=== PATIENT | male | born 1960 | race Caucasian/White ===

== ENCOUNTER → 2016-09-19 | Outpatient (CLI) | payer OTHER ==
--- NOTE | 2016-09-19 13:51 | US ---
EXAMINATION TYPE: US kidneys/renal and bladder DATE OF EXAM: 09/19/2016 1:25 PM COMPARISON: CT abdomen and pelvis October 16, 2015. Bilateral renal ultrasound October 17, 2015. CLINICAL HISTORY: US. 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 EXAM MEASUREMENTS: Right Kidney: 10.8 x 6.1 x 5.3cm Left Kidney: Not visualized ANATOMY: TECHNOLOGIST IMPRESSION: Right Kidney: 2.4 x 1.9 x 1.7cm anechoic lesion upper pole level right kidney with slight lobulation and increased through transmission likely reflecting simple cyst is redemonstrated and stable. Left Kidney: congenitally absent Bladder: appears wnl Right bladder jet seen Incidental finding: Shadowing mobile gallstones There is no evidence for hydronephrosis at this point in time. No new solid or cystic masses are iden tified. The urinary bladder is not greatly distended without abnormal intraluminal mass bladder wall thickness is upper limits of normal with slight lobulation present. Finding likely reflects outlet o bstruction related to enlarged prostate gland which is felt present on prior CT. IMPRESSION: No hydronephrosis in the single right kidney.
== END | disposition home or self-care (01) ==
LOC: RADUSWWP 13:03
PROVIDERS: ATTEND Internal Medicine Nephrology
DX: N18.3 Chronic kidney disease, stage 3 (moderate) (principal)
CPT/HCPCS: 76770

== ENCOUNTER 2016-10-04 12:06 | Observation (INO) | payer OTHER ==
[2016-10-04] MEDS ORDERED: SODIUM CHLORIDE 0.9% 1,000 ML IV STA (12:27)
--- NOTE | 2016-10-04 12:54 | ED ---
General Adult HPI - General Chief complaint: Chest Pain Stated complaint: Chest Pain Time Seen by Provider: 10/04/16 12:20 Source: patient, RN notes reviewed, old records reviewed Mode of arrival: wheelchair Limitations: no limitations - History of Present Illness Initial comments: This is a 48-year-old male to the ER for evaluation, patient coming in for evaluation of chest pain. Patient states he feels that he is having a heart attack. Patient has history of high blood pressure or cholesterol is positive smoking history. No recent cardiac evaluation, patient did see his lung doctor today who sent her to the ER for further evaluation of this chest pain. Patient does admit to mild shortness of breath although not much different than normal. No fevers cough or congestion, no recent travel history. Patient is taking no medications. - Related Data Home Medications Medication Instructions Recorded Confirmed Albuterol Inhaler [Ventolin Hfa 2 puff INHALATION RT-Q6H PRN 10/17/15 10/04/16 Inhaler] Budesonide-Formot 160-4.5 Mcg 2 puff INHALATION RT-BID 10/04/16 10/04/16 [Symbicort 160-4.5 Mcg Inhaler] Lisinopril [Zestril] 5 mg PO DAILY 10/04/16 10/04/16 Previous Rx's Medication Instructions Recorded Aspirin 325 mg PO DAILY #30 tab 08/30/16 Atorvastatin [Lipitor] 80 mg PO HS #30 tab 08/30/16 Clopidogrel [Plavix] 75 mg PO DAILY #30 tab 08/30/16 Montelukast [Singulair] 10 mg PO HS #30 tab 08/30/16 Nitroglycerin Sl Tabs [Nitrostat] 0.4 mg SUBLINGUAL Q5M PRN #25 tab 08/30/16 Allergies Allergy/AdvReac Type Severity Reaction Status Date / Time Penicillins Allergy Swelling Verified 10/04/16 12:12 Review of Systems ROS Statement: Those systems with pertinent positive or pertinent negative responses have been documented in the HPI. ROS Other: All systems not noted in ROS Statement are negative. Past Medical History Past Medical History: Asthma, COPD, GERD/Reflux, Hyperlipidemia, Hypertension, Pneumonia Additional Past Medical History / Comment(s): diverticular disease with perforation and sx, born with one kidney, recent pneumonia-completed ABX and steroids, syncope with cough, low back pain. History of Any Multi-Drug Resistant Organisms: None Reported Past Surgical History: Appendectomy, Bowel Resection, Heart Catheterization With Stent, Hernia Repair, Orthopedic Surgery Additional Past Surgical History / Comment(s): Laparoscopic appendectomy,pins and plates left wrist, pins and plates right knee, 10/16/13 sigmoid resection Past Anesthesia/Blood Transfusion Reactions: No Reported Reaction Past Psychological History: No Psychological Hx Reported Additional Psychological History / Comment(s): Pt resides alone. He has 2 cats. He is independent. 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 Smoking Status: Current every day smoker Past Alcohol Use History: Rare Additional Past Alcohol Use History / Comment(s): Pt states he started smoking in 1971 and quit 2 months ago. Past Drug Use History: None Reported - Past Family History Mother Family Medical History: Cancer Additional Family Medical History / Comment(s): Mother had laryngeal cancer. Father Family Medical History: Cancer, Hyperlipidemia, Hypertension Additional Family Medical History / Comment(s): Father has had back surgery and skin cancer removal. General Exam Limitations: no limitations General appearance: anxious Head exam: Present: atraumatic, normocephalic, normal inspection Eye exam: Present: normal appearance, PERRL, EOMI. Absent: scleral icterus, conjunctival injection, periorbital swelling ENT exam: Present: normal exam, mucous membranes moist Neck exam: Present: normal inspection. Absent: tenderness, meningismus, lymphadenopathy Respiratory exam: Present: normal lung sounds bilaterally. Absent: respiratory distress, wheezes, rales, rhonchi, stridor Cardiovascular Exam: Present: regular rate, normal rhythm, normal heart sounds. Absent: systolic murmur, diastolic murmur, rubs, gallop, clicks GI/Abdominal exam: Present: soft, normal bowel sounds. Absent: distended, tenderness, guarding, rebound, rigid Extremities exam: Present: normal inspection, full ROM, normal capillary refill. Absent: tenderness, pedal edema, joint swelling, calf tenderness Back exam: Present: normal inspection Neurological exam: Present: alert, oriented X3, CN II-XII intact Psychiatric exam: Present: normal affect, normal mood Skin exam: Present: warm, dry, intact, normal color. Absent: rash Course Vital Signs 10/04/16 12:10 Temperature 97.1 F L Pulse Rate 96 Respiratory 18 Rate Blood Pressure 106/68 O2 Sat by Pulse 96 Oximetry - Reevaluation(s) Reevaluation #1: 10/04/16 13:41 Patient patient remains with chest pain EKG Findings - EKG Comments: EKG Findings:: EKG shows normal sinus rhythm rate of 89, DC 116, QRS 84, QTc 413 Medical Decision Making - Medical Decision Making 56 male year with recent MD with stent placement, patient now with chest pain. Patient will be admitted for cardiac evaluation and treatment, no EKG changes, no ST elevation. Patient is placed again on anticoagulation for cardiac observation and telemetry - Lab Data Result diagrams: 10/04/16 12:55 10/04/16 12:55 Lab Results 10/04/16 10/04/16 10/04/16 Range/Units 12:55 12:55 12:55 WBC 7.9 (3.8-10.6) k/uL RBC 4.72 (4.30-5.90) m/uL Hgb 14.4 (13.0-17.5) gm/dL Hct 45.0 (39.0-53.0) % MCV 95.3 (80.0-100.0) fL MCH 30.5 (25.0-35.0) pg MCHC 32.0 (31.0-37.0) g/dL RDW 15.1 (11.5-15.5) % Plt Count 275 (150-450) k/uL Neutrophils % 72 % Lymphocytes % 19 % Monocytes % 5 % Eosinophils % 1 % Basophils % 0 % Neutrophils # 5.7 (1.3-7.7) k/uL Lymphocytes # 1.5 (1.0-4.8) k/uL Monocytes # 0.4 (0-1.0) k/uL Eosinophils # 0.1 (0-0.7) k/uL Basophils # 0.0 (0-0.2) k/uL PT 10.3 (9.0-12.0) sec INR 1.0 (<1.1) APTT 23.7 (22.0-30.0) sec Sodium 141 (137-145) mmol/L Potassium 5.0 (3.5-5.1) mmol/L Chloride 105 (98-107) mmol/L Carbon Dioxide 24 (22-30) mmol/L Anion Gap 12 mmol/L BUN 35 H (9-20) mg/dL Creatinine 2.20 H (0.66-1.25) mg/dL Est GFR (MDRD) Af Amer 37 (>60 ml/min/1.73 sqM) Est GFR (MDRD) Non-Af 31 (>60 ml/min/1.73 sqM) Glucose 114 H (74-99) mg/dL Calcium 9.7 (8.4-10.2) mg/dL Magnesium 2.0 (1.6-2.3) mg/dL Total Bilirubin 0.5 (0.2-1.3) mg/dL AST 16 L (17-59) U/L ALT 25 (21-72) U/L Alkaline Phosphatase 84 (38-126) U/L Total Protein 6.3 (6.3-8.2) g/dL Albumin 3.7 (3.5-5.0) g/dL Lipase 78 (23-300) U/L - Radiology Data Radiology results: report reviewed (Chest x-ray 2 views negative for acute disease), image reviewed Critical Care Time Critical Care Time: Yes Total Critical Care Time: 31 Disposition Clinical Impression: Chest pain, Unstable angina pectoris Disposition: ADMITTED IP TO THIS [facility] Condition: Undetermined Referrals: Alexandru Jenkins Jr, DO [Primary Care Provider] - 1-2 days
--- NOTE | 2016-10-04 13:15 | XR ---
EXAMINATION TYPE: XR chest 2V DATE OF EXAM: 10/04/2016 1:02 PM COMPARISON: 08/28/2016 HISTORY: Shortness of breath FINDINGS: The lungs are clear and there is no pneumothorax, pleural effusion, or focal pneumonia. Hyperinflati on suggests COPD. Calcified granuloma left upper lobe. Arthropathy of the shoulder noted. IMPRESSION: 1. No acute process. Correlate for COPD.
[2016-10-04 13:18] LABS: Partial Thromboplastin Time 23.7 sec (22.0-30.0); Prothrombin Time 10.3 sec (9.0-12.0)
[2016-10-04 13:19] LABS: Basophils % (A) 0 %; CH 31.1; CHCM 32.9; Calcium 9.7 mg/dL (8.4-10.2); Eosinophils # (A) 0.1 k/uL (0-0.7); Eosinophils % (A) 1 %; HDW 2.65; HGB 14.4 gm/dL (13.0-17.5); Luc # (Auto) 0.14; Luc % (Auto) 2; Lymphocytes # (A) 1.5 k/uL (1.0-4.8); Lymphocytes % (A) 19 %; MCH 30.5 pg (25.0-35.0); MCV 95.3 fL (80.0-100.0); Mean Platelet Volume 6.8; Monocytes # (A) 0.4 k/uL (0-1.0); Monocytes % (A) 5 %; Neutrophils # (A) 5.7 k/uL (1.3-7.7); Neutrophils % (A) 72 %; RBC 4.72 m/uL (4.30-5.90); RDW 15.1 % (11.5-15.5); Total Bilirubin 0.5 mg/dL (0.2-1.3); Total Protein 6.3 g/dL (6.3-8.2); WBC 7.9 k/uL (3.8-10.6); WBC (Perox) 7.91
[2016-10-04] MEDS ORDERED: HEPARIN SODIUM,PORCINE 5,000 UNIT/ML 1 ML VIAL IV ONE (13:39)
[2016-10-04] MEDS ORDERED: NITROGLYCERIN SL TABS 0.4 MG TAB SUBLINGUAL PRN (13:39)
[2016-10-04] MEDS ORDERED: ASPIRIN 81 MG CHEW PO STA (13:39)
[2016-10-04] MEDS ORDERED: MORPHINE SULFATE 4 MG/ML SYRINGE IV PRN (13:39)
[2016-10-04] MEDS ORDERED: HEPARIN SODIUM,PORCINE 5,000 UNIT/ML 1 ML VIAL IV PRN (13:39)
[2016-10-04] MEDS ORDERED: MORPHINE SULFATE 2 MG/ML SYRINGE IVP STA (13:39)
[2016-10-04] MEDS ORDERED: SODIUM CHLORIDE 0.9% 1,000 ML IV SCH (13:45)
[2016-10-04] MEDS ORDERED: HEPARIN SODIUM,PORCINE/D5W PMX 25,000 UNIT in DEXTROSE/WATER 1 500ML.BAG IV SCH (13:45)
[2016-10-04 13:46] LABS: Troponin I 0.043 ng/mL (0.000-0.034)
[2016-10-04 14:08] VITALS: TEMP 98
[2016-10-04 15:59] VITALS: BP 109/69; PULSE 80; RESP 16
[2016-10-05] MEDS ORDERED: ATORVASTATIN 80 MG TAB PO SCH (09:00)
[2016-10-05] MEDS ORDERED: ASPIRIN 325 MG TAB PO SCH (09:00)
== END 2016-10-04 16:08 | disposition left against medical advice (07) ==
LOC: EC 12:06 → 6SEL 13:39
PROVIDERS: ADMIT Family Medicine; ATTEND Family Medicine
DX: R07.9 Chest pain, unspecified (principal); J45.909 Unspecified asthma, uncomplicated; J44.9 Chronic obstructive pulmonary disease, unspecified; I10 Essential (primary) hypertension; F17.200 Nicotine dependence, unspecified, uncomplicated; Z95.5 Presence of coronary angioplasty implant and graft; I25.2 Old myocardial infarction; Z79.51 Long term (current) use of inhaled steroids; Z79.899 Other long term (current) drug therapy; Z88.0 Allergy status to penicillin; Q60.0 Renal agenesis, unilateral
CPT/HCPCS: 96365; 96366; 96376; 96361 ×3; 99291; 36415; 93005; 83880; 80053; 82550; 82553; 83690; 83735; 84484; 85025; 85610; 85730; 71020; G0378; J1644 ×2

== ENCOUNTER → 2016-10-09 | Outpatient (CLI) | payer OTHER ==
[2016-10-09 10:29] LABS: Bilirubin, Delta 0.3 mg/dL (0.0-0.2); Total Bilirubin 0.6 mg/dL (0.2-1.3); Total Protein 6.6 g/dL (6.3-8.2)
== END | disposition home or self-care (01) ==
LOC: LABWHC1 09:07
PROVIDERS: ATTEND Internal Medicine Cardiovascular Disease
DX: E78.5 Hyperlipidemia, unspecified (principal); I25.10 Atherosclerotic heart disease of native coronary artery without angina pectoris
CPT/HCPCS: 36415; 80061; 80076

== ENCOUNTER → 2017-01-21 | Outpatient (CLI) | payer OTHER ==
--- NOTE | 2017-01-21 19:01 | CT ---
EXAMINATION TYPE: CT chest wo con DATE OF EXAM: 01/21/2017 6:54 PM COMPARISON: NONE HISTORY: Difficulty swallowing x [address] DLP: 1042.90 mGycm Automated exposure control for dose reduction was used. FINDINGS: The lungs are clear of infiltrate. There is no sign of a pulmonary mass. There is a hiatal hernia. Th ere are calcified granulomata at the left pulmonary hilum. There is no pleural effusion. There is no mediastinal adenopathy. There is no evidence of aortic aneurysm. The bony thorax appears intact. IMPRESSION: HIATAL HERNIA. HEALED GRANULOMATOUS DISEASE. MINIMAL SCARRING OR SUBSEGMENTAL ATELECTASIS IN THE LING [place] LEFT UPPER LOBE.
--- NOTE | 2017-01-21 19:06 | CT ---
EXAMINATION TYPE: CT soft tissue neck wo con DATE OF EXAM: 01/21/2017 6:53 PM COMPARISON: NONE HISTORY: Difficulty swallowing x [address] DLP: 1042.90 mGycm Automated exposure control for dose reduction was used. FINDINGS: There is normal branching pattern of the great vessels on the aortic arch. I see no mediastinal adeno adryan. Thyroid gland is symmetric. There is no evidence of a pharyngeal mass. Trachea appears normal. Parotid glands are symmetric. Submandibular salivary glands are symmetric. Epiglottis appears normal . There is fairly normal aeration of the paranasal sinuses. I see no bony destructive process. There is mild spondylosis in the cervical spine. I see no significant cervical adenopathy. IMPRESSION: DEGENERATIVE HYPERTROPHIC DISC CHANGES AT C6-7. OTHERWISE NEGATIVE CT SCAN OF THE NECK.
== END | disposition home or self-care (01) ==
LOC: RADCTMAIN 17:30
PROVIDERS: ATTEND Family Medicine
DX: K22.0 Achalasia of cardia (principal); Z85.21 Personal history of malignant neoplasm of larynx; J98.11 Atelectasis; K44.9 Diaphragmatic hernia without obstruction or gangrene; D71 Functional disorders of polymorphonuclear neutrophils
CPT/HCPCS: 36415; 70490; 71250; 82565; 84520

== ENCOUNTER 2017-03-06 08:11 | Day surgery (SDC) | payer OTHER ==
[2017-03-01 12:19] VITALS: BMI 27.6
[~2017-03-06 08:11] MED LIST: LACTATED RINGERS 1,000 ML IV SCH
[2017-03-06 09:54] VITALS: RESP 16; TEMP 97.9
[2017-03-06] MEDS ORDERED: PROPOFOL 10 MG/ML 20 ML VIAL IV ONE (09:57)
--- NOTE | 2017-03-06 10:08 | P.PCN ---
Date of Procedure: 03/06/17 Preoperative Diagnosis: Postoperative Diagnosis: Procedure(s) Performed: BRIEF HISTORY: Patient is a 56-year-old, pleasant, white male, scheduled for an upper endoscopy as a part of evaluation of progressive dysphagia to solids for the last 5 months duration. He denies any weight loss.. PROCEDURE PERFORMED: Esophagogastroduodenoscopy with biopsy. PREOPERATIVE DIAGNOSIS: Progressive dysphagia to solids. IV sedation per anesthesia. PROCEDURE: After informed consent was obtained, the patient was brought into the endoscopy unit. IV sedation was administered by Anesthesia under continuous monitoring. Initially the Olympus GIF-140 video endoscope was inserted into the mouth. Esophagus intubated without any difficulty. It was gradually advanced into the distal esophagus where there was an ulcerated lesion identified extending from 37-40 cm from the incisors with some luminal narrowing. The scope was advanced into the stomach and duodenum and carefully examined. The bulb and the second part of the duodenum appeared normal. The scope at this time was withdrawn to the stomach, adequately insufflated with air, and upon careful examination, mucosa of the antrum, body, cardia and the fundus appeared normal. The scope was then withdrawn into the esophagus. Small hiatal hernia seen. The GE junction was located at 40 cm from the incisors. There was a distal esophageal ulcerated mass identified with some luminal narrowing but the scope could be advanced without any resistance. Multiple biopsies were done from this area. The rest of the esophagus appeared normal. There were no erosions or ulcerations seen and the patient tolerated the procedure well. IMPRESSION: 1. 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 2. Small hiatal hernia. RECOMMENDATIONS: The findings of this examination were discussed with the patient as well as his family. He was advised to follow up in office in 2-3 days to discuss the biopsy results. Implants: Indications for Procedure: Operative Findings: Description of Procedure:
[2017-03-06 10:25] VITALS: BP 118/63; PULSE 63
== END 2017-03-06 11:05 | disposition home or self-care (01) ==
LOC: ORWHC2ENDO 08:11
PROVIDERS: ATTEND Internal Medicine Gastroenterology
DX: C15.5 Malignant neoplasm of lower third of esophagus (principal); K44.9 Diaphragmatic hernia without obstruction or gangrene; I10 Essential (primary) hypertension; I25.2 Old myocardial infarction; I25.10 Atherosclerotic heart disease of native coronary artery without angina pectoris; Z95.5 Presence of coronary angioplasty implant and graft; J44.9 Chronic obstructive pulmonary disease, unspecified; N28.9 Disorder of kidney and ureter, unspecified; K21.9 Gastro-esophageal reflux disease without esophagitis; F17.200 Nicotine dependence, unspecified, uncomplicated; Z79.02 Long term (current) use of antithrombotics/antiplatelets; Z79.82 Long term (current) use of aspirin; Z79.899 Other long term (current) drug therapy; Z88.0 Allergy status to penicillin
CPT/HCPCS: 88305; 43239; J2704; 88341; 88342

== ENCOUNTER → 2017-04-16 | Outpatient (CLI) | payer OTHER ==
[2017-04-16 09:05] LABS: CH 30.2; CHCM 32.1; HCT 50.4 % (39.0-53.0); HDW 2.59; HGB 16.4 gm/dL (13.0-17.5); MCH 30.8 pg (25.0-35.0); MCHC 32.6 g/dL (31.0-37.0); MCV 94.5 fL (80.0-100.0); Mean Platelet Volume 7.6; RBC 5.33 m/uL (4.30-5.90); WBC 7.4 k/uL (3.8-10.6)
[2017-04-16 12:22] LABS: Calcium 9.8 mg/dL (8.4-10.2); Magnesium 1.8 mg/dL (1.6-2.3); Phosphorous 3.8 mg/dL (2.5-4.5); Potassium 4.9 mmol/L (3.5-5.1); Total Protein 6.8 g/dL (6.3-8.2); Uric Acid 9.4 mg/dL (3.5-8.5)
[2017-04-16 12:31] LABS: % Iron Saturation 27.2 % (20-50)
== END | disposition home or self-care (01) ==
LOC: LABWHC1 08:21
PROVIDERS: ATTEND Internal Medicine
DX: E55.9 Vitamin D deficiency, unspecified (principal); E21.3 Hyperparathyroidism, unspecified; M10.9 Gout, unspecified; N39.0 Urinary tract infection, site not specified; R80.9 Proteinuria, unspecified; N18.3 Chronic kidney disease, stage 3 (moderate); D63.1 Anemia in chronic kidney disease
CPT/HCPCS: 36415; 80053; 82306; 82728; 83540; 83550; 83735; 83970; 84100; 84550; 85027

== ENCOUNTER 2017-04-17 23:33 | Observation (INO) | payer OTHER ==
[2017-04-18 00:16] LABS: Basophils # (A) 0.1 k/uL (0-0.2); Basophils % (A) 1 %; CH 31.4; CHCM 33.4; Eosinophils # (A) 0.1 k/uL (0-0.7); Eosinophils % (A) 2 %; HCT 53.7 % (39.0-53.0); HDW 2.54; HGB 17.1 gm/dL (13.0-17.5); Luc # (Auto) 0.17; Luc % (Auto) 2; Lymphocytes # (A) 1.3 k/uL (1.0-4.8); Lymphocytes % (A) 17 %; MCHC 31.8 g/dL (31.0-37.0); MCV 94.3 fL (80.0-100.0); Monocytes # (A) 0.4 k/uL (0-1.0); Monocytes % (A) 5 %; Neutrophils # (A) 5.3 k/uL (1.3-7.7); Neutrophils % (A) 73 %; RBC 5.69 m/uL (4.30-5.90); RDW 15.9 % (11.5-15.5); WBC 7.3 k/uL (3.8-10.6); WBC (Perox) 6.96
[2017-04-18 00:24] LABS: Calcium 9.8 mg/dL (8.4-10.2); Partial Thromboplastin Time 23.6 sec (22.0-30.0); Prothrombin Time 10.5 sec (9.0-12.0); Total Bilirubin 0.9 mg/dL (0.2-1.3); Total Protein 6.9 g/dL (6.3-8.2)
--- NOTE | 2017-04-18 00:32 | ED ---
GI Bleed HPI - General Chief complaint: GI Bleed Stated complaint: throwing up blood/cancer patient Time Seen by Provider: 04/18/17 00:00 Source: patient Mode of arrival: wheelchair Limitations: no limitations - History of Present Illness Initial comments: This patient is a 56-year-old man who presents to be evaluated for vomiting blood. The patient states that the symptoms developed 3-4 hours ago. He states that he was just sitting at the time. He has subsequently vomited with some red blood and with some small clots a total of 3 times. He denies any abdominal pain or change in bowel movements. He does state that he has had some substernal aching pain, which contrary to the nursing notes did not start tonight, but has been going on for weeks. He states that this has not changed any was told that this was due to his cancer. The patient is denying any new dyspnea, though he states with his COPD he does have some occasional shortness of breath anyways. He denies lightheadedness, postural hypotension, palpitations or syncope. MD complaint: gross hematemesis Onset/Timin -: hour(s) Quality: painless Improves with: none Worsens with: none Context: other Associated Symptoms: other (chest pain) Treatments Prior to Arrival: none - Related Data Home Medications Medication Instructions Recorded Confirmed Albuterol Inhaler [Ventolin Hfa 2 puff INHALATION RT-Q6H PRN 10/17/15 04/17/17 Inhaler] Budesonide-Formot 160-4.5 Mcg 2 puff INHALATION RT-BID 10/04/16 04/17/17 [Symbicort 160-4.5 Mcg Inhaler] Isosorbide Mononitrate [Isosorbide 30 mg PO DAILY 03/01/17 04/17/17 Mononitrate ER] Tiotropium 18 Mcg/Puff [Spiriva] 1 cap INHALATION DAILY 03/01/17 04/17/17 buPROPion [Wellbutrin] 100 mg PO BID 03/01/17 04/17/17 Previous Rx's Medication Instructions Recorded Aspirin 325 mg PO DAILY #30 tab 08/30/16 Atorvastatin [Lipitor] 80 mg PO HS #30 tab 08/30/16 Clopidogrel [Plavix] 75 mg PO DAILY #30 tab 08/30/16 Montelukast [Singulair] 10 mg PO HS #30 tab 08/30/16 Nitroglycerin Sl Tabs [Nitrostat] 0.4 mg SUBLINGUAL Q5M PRN #25 tab 08/30/16 Allergies Allergy/AdvReac Type Severity Reaction Status Date / Time Penicillins Allergy Swelling Verified 04/17/17 23:39 Review of Systems ROS Statement: Those systems with pertinent positive or pertinent negative responses have been documented in the HPI. ROS Other: All systems not noted in ROS Statement are negative. Constitutional: Denies: fever, chills, weakness Respiratory: Denies: cough, dyspnea, wheezes, hemoptysis Cardiovascular: Reports: as per HPI, chest pain. Denies: palpitations, edema, syncope Gastrointestinal: Reports: nausea, vomiting, hematemesis. Denies: abdominal pain, diarrhea, constipation, melena, hematochezia Genitourinary: Denies: dysuria, hematuria Musculoskeletal: Denies: back pain Skin: Denies: rash Neurological: Denies: headache, weakness, numbness Hematological/Lymphatic: Denies: easy bleeding 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%, recent dysphagia, occasional syncope w/hard coughing, esophageal CA. Last Myocardial Infarction Date:: 08/28/16 History of Any Multi-Drug Resistant Organisms: None Reported Past Surgical History: Appendectomy, Bowel Resection, Heart Catheterization With Stent, Hernia Repair, Orthopedic Surgery Additional Past Surgical History / Comment(s): pins and plates left wrist, pins and plates right knee Past Anesthesia/Blood Transfusion Reactions: No Reported Reaction Date of Last Stent Placement:: 08/28/16 Past Psychological History: No Psychological Hx Reported Smoking Status: Current every day smoker Past Alcohol Use History: Rare Past Drug Use History: None Reported - Past Family History Mother Family Medical History: Cancer Additional Family Medical History / Comment(s): Mother had laryngeal cancer. Father Family Medical History: Cancer, Hyperlipidemia, Hypertension Additional Family Medical History / Comment(s): Father has had back surgery and skin cancer removal. General Exam Limitations: no limitations General appearance: alert, in no apparent distress Head exam: Present: atraumatic, normocephalic Eye exam: Present: normal appearance. Absent: scleral icterus, conjunctival injection ENT exam: Present: normal oropharynx Neck exam: Present: normal inspection Respiratory exam: Present: wheezes (There is a trace and expiratory wheeze). Absent: respiratory distress, rales, rhonchi, stridor, accessory muscle use, decreased breath sounds, prolonged expiratory Cardiovascular Exam: Present: regular rate, normal rhythm, normal heart sounds. Absent: systolic murmur, diastolic murmur, rubs, gallop GI/Abdominal exam: Present: soft. Absent: distended, tenderness, guarding, rebound, mass, pulsatile mass, hernia Extremities exam: Present: normal inspection, normal capillary refill. Absent: pedal edema, calf tenderness Back exam: Present: normal inspection. Absent: CVA tenderness (R), CVA tenderness (L) Neurological exam: Present: alert Skin exam: Present: warm, dry, intact, normal color. Absent: rash Course Vital Signs 04/17/17 04/18/17 23:35 01:44 Temperature 98.2 F Pulse Rate 74 66 Respiratory 18 18 Rate Blood Pressure 138/71 130/79 O2 Sat by Pulse 95 98 Oximetry Medical Decision Making - Lab Data Result diagrams: 04/17/17 23:55 04/17/17 23:55 Lab Results 04/17/17 04/17/17 04/17/17 Range/Units 23:55 23:55 23:55 WBC 7.3 (3.8-10.6) k/uL RBC 5.69 (4.30-5.90) m/uL Hgb 17.1 (13.0-17.5) gm/dL Hct 53.7 H (39.0-53.0) % MCV 94.3 (80.0-100.0) fL MCH 30.0 (25.0-35.0) pg MCHC 31.8 (31.0-37.0) g/dL RDW 15.9 H (11.5-15.5) % Plt Count 219 (150-450) k/uL Neutrophils % 73 % Lymphocytes % 17 % Monocytes % 5 % Eosinophils % 2 % Basophils % 1 % Neutrophils # 5.3 (1.3-7.7) k/uL Lymphocytes # 1.3 (1.0-4.8) k/uL Monocytes # 0.4 (0-1.0) k/uL Eosinophils # 0.1 (0-0.7) k/uL Basophils # 0.1 (0-0.2) k/uL PT 10.5 (9.0-12.0) sec INR 1.0 (<1.2) APTT 23.6 (22.0-30.0) sec Sodium 143 (137-145) mmol/L Potassium 4.0 (3.5-5.1) mmol/L Chloride 102 (98-107) mmol/L Carbon Dioxide 27 (22-30) mmol/L Anion Gap 14 mmol/L BUN 39 H (9-20) mg/dL Creatinine 2.10 H (0.66-1.25) mg/dL Est GFR (MDRD) Af Amer 40 (>60 ml/min/1.73 sqM) Est GFR (MDRD) Non-Af 33 (>60 ml/min/1.73 sqM) Glucose 103 H (74-99) mg/dL Plasma Lactic Acid David (0.7-2.0) mmol/L Calcium 9.8 (8.4-10.2) mg/dL Total Bilirubin 0.9 (0.2-1.3) mg/dL AST 20 (17-59) U/L ALT 30 (21-72) U/L Alkaline Phosphatase 110 (38-126) U/L Troponin I (0.000-0.034) ng/mL Total Protein 6.9 (6.3-8.2) g/dL Albumin 4.1 (3.5-5.0) g/dL Blood Type Blood Type Recheck Antibody Screen Spec Expiration Date 04/17/17 04/17/17 04/18/17 Range/Units 23:55 23:55 00:12 WBC (3.8-10.6) k/uL RBC (4.30-5.90) m/uL Hgb (13.0-17.5) gm/dL Hct (39.0-53.0) % MCV (80.0-100.0) fL MCH (25.0-35.0) pg MCHC (31.0-37.0) g/dL RDW (11.5-15.5) % Plt Count (150-450) k/uL Neutrophils % % Lymphocytes % % Monocytes % % Eosinophils % % Basophils % % Neutrophils # (1.3-7.7) k/uL Lymphocytes # (1.0-4.8) k/uL Monocytes # (0-1.0) k/uL Eosinophils # (0-0.7) k/uL Basophils # (0-0.2) k/uL PT (9.0-12.0) sec INR (<1.2) APTT (22.0-30.0) sec Sodium (137-145) mmol/L Potassium (3.5-5.1) mmol/L Chloride (98-107) mmol/L Carbon Dioxide (22-30) mmol/L Anion Gap mmol/L BUN (9-20) mg/dL Creatinine (0.66-1.25) mg/dL Est GFR (MDRD) Af Amer (>60 ml/min/1.73 sqM) Est GFR (MDRD) Non-Af (>60 ml/min/1.73 sqM) Glucose (74-99) mg/dL Plasma Lactic Acid David 1.1 (0.7-2.0) mmol/L Calcium (8.4-10.2) mg/dL Total Bilirubin (0.2-1.3) mg/dL AST (17-59) U/L ALT (21-72) U/L Alkaline Phosphatase (38-126) U/L Troponin I <0.012 (0.000-0.034) ng/mL Total Protein (6.3-8.2) g/dL Albumin (3.5-5.0) g/dL Blood Type O Positive Blood Type Recheck No Antibody Screen NEGATIVE Spec Expiration Date 04/20/20172 Disposition Clinical Impression: Upper gastrointestinal hemorrhage Disposition: ADMITTED IP TO THIS [facility] Condition: Fair Referrals: Alexandru Jenkins Jr, DO [Primary Care Provider] - 1-2 days
[2017-04-18] MEDS ORDERED: ONDANSETRON 4 MG/2 ML VIAL IVP PRN (02:35)
[2017-04-18] MEDS ORDERED: ACETAMINOPHEN TAB 325 MG TAB PO PRN (02:35)
[2017-04-18] MEDS ORDERED: MAG HYDROX/AL HYDROX/SIMETH 30 ML CUP PO PRN (02:35)
[2017-04-18] MEDS ORDERED: NALOXONE 0.4 MG/ML 1 ML VIAL IV PRN (02:35)
[2017-04-18] MEDS ORDERED: ALBUTEROL NEBULIZED 2.5 MG/3 ML INHALATION PRN ×2 (02:37→14:49)
[2017-04-18] MEDS ORDERED: NITROGLYCERIN SL TABS 0.4 MG TAB SUBLINGUAL PRN (02:37)
[2017-04-18] MEDS: SODIUM CHLORIDE 0.9% 1,000 ML IV SCH ×2 (02:53→10:29)
[2017-04-18 03:46] VITALS: BMI 28.1
[2017-04-18 07:25] LABS: CH 31.5; CHCM 33.2; HCT 49.8 % (39.0-53.0); HDW 2.51; HGB 16.1 gm/dL (13.0-17.5); MCH 30.8 pg (25.0-35.0); MCHC 32.3 g/dL (31.0-37.0); MCV 95.3 fL (80.0-100.0); Mean Platelet Volume 8.3; RBC 5.23 m/uL (4.30-5.90); RDW 15.9 % (11.5-15.5); WBC 6.9 k/uL (3.8-10.6)
[2017-04-18] MEDS ORDERED: SYMBICORT 160-4.5 MCG INHALER INHALATION SCH (08:00)
[2017-04-18] MEDS ORDERED: buPROPion 100 MG TAB PO SCH (09:00)
[2017-04-18] MEDS ORDERED: ISOSORBIDE MONONITRATE ER 30 MG TAB.ER.24H PO SCH (09:00)
[2017-04-18] MEDS ORDERED: TIOTROPIUM 18 MCG/PUFF INHALER INHALATION SCH ×2 (09:00)
[2017-04-18] MEDS ORDERED: PANTOPRAZOLE 40 MG/10 ML VIAL IV SCH (09:00)
[2017-04-18] MEDS ORDERED: NICOTINE 14MG/24HR PATCH TRANSDERM SCH (10:30)
[2017-04-18 15:38] LABS: CH 31.3; CHCM 32.9; HCT 46.7 % (39.0-53.0); HDW 2.53; MCH 30.8 pg (25.0-35.0); MCHC 32.2 g/dL (31.0-37.0); MCV 95.5 fL (80.0-100.0); Mean Platelet Volume 8.6; RBC 4.89 m/uL (4.30-5.90); WBC 6.7 k/uL (3.8-10.6)
[2017-04-18 15:42] VITALS: BP 130/80; PULSE 68; RESP 17; TEMP 97.8
[2017-04-18] MEDS ORDERED: NON-FORMULARY DRUG (Omeprazole 20 MG) PO SCH (17:30)
--- NOTE | 2017-04-18 18:31 | P.HPIM ---
History of Present Illness H&P Date: 04/18/17 Chief Complaint: Hematemesis, newly diagnosed esophageal cancer This 56-year-old man well-known to my practice who presented to the emergency room vomiting blood. Patient stated at the time the symptoms began about 3 or 4 hours ago, patient states he was sitting up at the time, this patient is relatively new to the practice I'm seeing him 3 times daily newly diagnosed him with esophageal cancer he is currently being attended to at the [facility] and was beginning about ready to start radiochemotherapy preoperatively to shrink the tumor mass so that he can undergo a believe a gastric pull up. Patient does have some midsternal aching pain was told that this was secondary to the cancer patient has a history of COPD he has quit smoking cigarettes although he still uses a nicotine vaporizer. He denies lightheadedness venous denies postural hypotension as well as palpitations and syncope Review of Systems Constitutional: Reports anorexia Ears, nose, mouth and throat: Reports as per HPI Cardiovascular: Reports as per HPI, Reports chest pain Respiratory: Reports dyspnea (Known early COPD) Gastrointestinal: Reports hematemesis (Newly diagnosed esophageal cancer) Genitourinary: Reports as per HPI Musculoskeletal: Reports as per HPI Integumentary: Reports acne Neurological: Reports as per HPI Past Medical History Past Medical History: Asthma, Cancer, COPD, GERD/Reflux, Hyperlipidemia, Hypertension, Myocardial Infarction ([place]), Osteoarthritis (OA), Renal Disease Additional Past Medical History / Comment(s): diverticular disease with perforation and sx, CKD stage III, 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%, recent dysphagia, occasional syncope w/hard coughing, esophageal CA Dx 03/2017 Last Myocardial Infarction Date:: 08/28/16 History of Any Multi-Drug Resistant Organisms: None Reported Past Surgical History: Appendectomy, Bowel Resection, Heart Catheterization With Stent, Hernia Repair, Orthopedic Surgery Additional Past Surgical History / Comment(s): pins and plates left wrist, pins and plates right knee Past Anesthesia/Blood Transfusion Reactions: No Reported Reaction Date of Last Stent Placement:: 08/28/16 Past Psychological History: No Psychological Hx Reported Additional Psychological History / Comment(s): Pt resides alone. He has 2 cats. He is independent. 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 Smoking Status: Former smoker Past Alcohol Use History: Rare Additional Past Alcohol Use History / Comment(s): down to 4 cigs/day from 3ppd, has smoked for 42 yrs. Past Drug Use History: None Reported - Past Family History Mother Family Medical History: Cancer Additional Family Medical History / Comment(s): Mother had laryngeal cancer. Father Family Medical History: Cancer, Hyperlipidemia, Hypertension Additional Family Medical History / Comment(s): Father has had back surgery and skin cancer removal. Medications and Allergies Home Medications Medication Instructions Recorded Confirmed Type Albuterol Inhaler [Ventolin Hfa 2 puff INHALATION RT-Q6H PRN 10/17/15 04/18/17 History Inhaler] Budesonide-Formot 160-4.5 Mcg 2 puff INHALATION RT-BID 10/04/16 04/18/17 History [Symbicort 160-4.5 Mcg Inhaler] Isosorbide Mononitrate [Isosorbide 30 mg PO DAILY 03/01/17 04/18/17 History Mononitrate ER] Tiotropium 18 Mcg/Puff [Spiriva] 1 cap INHALATION RT-DAILY 03/01/17 04/18/17 History buPROPion [Wellbutrin] 100 mg PO BID 03/01/17 04/18/17 History Albuterol Nebulized [Ventolin 2.5 mg INHALATION RT-Q4H PRN 04/18/17 04/18/17 History Nebulized] Bisoprol/Hydrochlorothiazide [Ziac 1 tab PO DAILY 04/18/17 04/18/17 History 5-6.25 MG] Omeprazole [PriLOSEC] 20 mg PO AC-BID 04/18/17 04/18/17 History Allergies Allergy/AdvReac Type Severity Reaction Status Date / Time bee venom protein (honey bee) Allergy Swelling Verified 04/18/17 08:54 Penicillins Allergy Swelling Verified 04/18/17 08:54 Physical Exam Osteopathic Statement: *. No significant issues noted on an osteopathic structural exam other than those noted in the History and Physical/Consult. Vitals: Vital Signs Temp Pulse Pulse Resp BP BP Pulse Ox 04/18/17 15:41 97.8 F 68 17 130/80 95 04/18/17 12:00 18 04/18/17 08:00 97.6 F 67 18 119/63 92 L 04/18/17 04:00 97.8 F 62 18 133/73 98 04/18/17 02:59 98.0 F 63 16 136/82 97 04/18/17 02:48 98.0 F 63 16 136/82 97 04/18/17 01:44 66 18 130/79 98 04/17/17 23:35 98.2 F 74 18 138/71 95 Intake and Output 04/18/17 04/18/17 04/18/17 06:59 14:59 22:59 Intake Total 500 760 Balance 500 760 Intake: Intake, IV Titration 400 Amount Sodium Chloride 0.9% 1, 400 000 ml @ 125 mls/hr IV . Q8H [facility] Rx#:[id number] Oral 100 760 Other: Voiding Method Toilet Toilet Toilet # Voids 1 Weight 81.647 kg General: [Patient awake, alert and oriented times 3. Patient in no acute distress.] HEENT: [PERRL. EOMI. No pharyngeal erythema or exudate.] Neck: [No adenopathy.] Cardiac: [Heart regular in rate and rhythm. No S3. No S4. No clicks, rubs. No murmur.] Lungs: [Clear to auscultation bilaterally.] Abdomen: [No mass. No organomegaly. Bowel sounds presnt and normoactive in all 4 quadrants.] Extremes: [No edema no cyanosis no claudication normal pulses] : [] Musculoskeletal: [No joint erythema, edema or tenderness.] Skin: [No rash.] Neurologic: [No lateralizing deficits. CN II - XII grossly intact.] Lymphatic: [No adenopathy.] Results CBC & Chem 7: 04/18/17 15:11 04/17/17 23:55 Labs: Abnormal Lab Results - Last 24 Hours (Table) 04/17/17 04/17/17 04/18/17 Range/Units 23:55 23:55 06:27 Hct 53.7 H (39.0-53.0) % RDW 15.9 H 15.9 H (11.5-15.5) % BUN 39 H (9-20) mg/dL Creatinine 2.10 H (0.66-1.25) mg/dL Glucose 103 H (74-99) mg/dL 04/18/17 Range/Units 15:11 Hct (39.0-53.0) % RDW 16.0 H (11.5-15.5) % BUN (9-20) mg/dL Creatinine (0.66-1.25) mg/dL Glucose (74-99) mg/dL Thrombosis Risk Factor Assmnt - Choose All That Apply Any of the Below Risk Factors Present?: Yes Each Factor Represents 1 point: Age 41-60 years Other Risk Factors: No Thrombosis Risk Factor Assessment Total Risk Factor Score: 1 Thrombosis Risk Factor Assessment Level: Low Risk Assessment and Plan (1) Upper gastrointestinal hemorrhage Narrative/Plan: Acute Status: Acute (2) THO (acute kidney injury) Narrative/Plan: By history Status: Acute (3) Acute coronary syndrome Narrative/Plan: By history Status: Acute (4) Acute diverticulitis Narrative/Plan: By history Status: Acute (5) Acute renal failure Narrative/Plan: By history Status: Acute (6) Asthma Narrative/Plan: By history Status: Acute (7) COPD exacerbation Narrative/Plan: By history Status: Acute (8) Chest pain Narrative/Plan: By history and recent history of newly diagnosed esophageal cancer Status: Acute Plan: Patient has newly diagnosed esophageal cancer currently being worked up at the emergency admission patient is about to begin chemoradiotherapy preoperatively to shrink the tumor mass so he can undergo surgery. The bleeding is bright red and is definitely secondary to the esophageal cancer, Bleeding has completely stopped patient feels much better Dr. Osorio had stopped by and is reassured the patient that this was part of the early process Patient wishes to go home to prepare his first visit [facility]
--- NOTE | 2017-04-18 18:34 | P.DS ---
Providers Date of admission: 04/18/17 02:35 Expected date of discharge: 04/18/17 Attending physician: Alexandru Jenkins Primary care physician: Alexandru Jenkins - Discharge Diagnosis(es) (1) Upper gastrointestinal hemorrhage Current Visit: Yes Status: Acute (2) THO (acute kidney injury) Current Visit: No Status: Acute (3) Acute coronary syndrome Current Visit: No Status: Acute (4) Acute diverticulitis Current Visit: No Status: Acute (5) Acute renal failure Current Visit: No Status: Acute (6) Asthma Current Visit: No Status: Acute (7) COPD exacerbation Current Visit: No Status: Acute (8) Chest pain Current Visit: No Status: Acute Hospital Course: Patient was admitted less than a reevaluate her this morning patient is completely stable hemodynamically bleeding has ceased we'll discharge home today Patient Condition at Discharge: Fair Plan - Discharge Summary New Discharge Prescriptions: No Action Albuterol Inhaler [Ventolin Hfa Inhaler] 2 puff INHALATION RT-Q6H PRN PRN Reason: Shortness Of Breath Aspirin 325 mg PO DAILY #30 tab Atorvastatin [Lipitor] 80 mg PO HS #30 tab Clopidogrel [Plavix] 75 mg PO DAILY #30 tab Nitroglycerin Sl Tabs [Nitrostat] 0.4 mg SUBLINGUAL Q5M PRN #25 tab PRN Reason: Chest Pain Montelukast [Singulair] 10 mg PO HS #30 tab Budesonide-Formot 160-4.5 Mcg [Symbicort 160-4.5 Mcg Inhaler] 2 puff INHALATION RT-BID buPROPion [Wellbutrin] 100 mg PO BID Tiotropium 18 Mcg/Puff [Spiriva] 1 cap INHALATION RT-DAILY Isosorbide Mononitrate [Isosorbide Mononitrate ER] 30 mg PO DAILY Omeprazole [PriLOSEC] 20 mg PO AC-BID Albuterol Nebulized [Ventolin Nebulized] 2.5 mg INHALATION RT-Q4H PRN PRN Reason: Shortness Of Breath Bisoprol/Hydrochlorothiazide [Ziac 5-6.25 MG] 1 tab PO DAILY Discharge Medication List Albuterol Inhaler [Ventolin Hfa Inhaler] 2 puff INHALATION RT-Q6H PRN 10/17/15 [ History] Aspirin 325 mg PO DAILY #30 tab 12/29/16 [Rx] Atorvastatin [Lipitor] 80 mg PO HS #30 tab 08/30/16 [Rx] Clopidogrel [Plavix] 75 mg PO DAILY #30 tab 08/30/16 [Rx] Montelukast [Singulair] 10 mg PO HS #30 tab 08/30/16 [Rx] Nitroglycerin Sl Tabs [Nitrostat] 0.4 mg SUBLINGUAL Q5M PRN #25 tab 08/30/16 [Rx ] Budesonide-Formot 160-4.5 Mcg [Symbicort 160-4.5 Mcg Inhaler] 2 puff INHALATION RT-BID 10/04/16 [History] Isosorbide Mononitrate [Isosorbide Mononitrate ER] 30 mg PO DAILY 03/01/17 [ History] Tiotropium 18 Mcg/Puff [Spiriva] 1 cap INHALATION RT-DAILY 03/01/17 [History] buPROPion [Wellbutrin] 100 mg PO BID 03/01/17 [History] Albuterol Nebulized [Ventolin Nebulized] 2.5 mg INHALATION RT-Q4H PRN 04/18/17 [ History] Bisoprol/Hydrochlorothiazide [Ziac 5-6.25 MG] 1 tab PO DAILY 04/18/17 [History] Omeprazole [PriLOSEC] 20 mg PO AC-BID 04/18/17 [History] Follow up Appointment(s)/Referral(s): Alexandru Jenkins Jr, DO [Primary Care Provider] - 1-2 days
[2017-04-18] MEDS ORDERED: ATORVASTATIN 80 MG TAB PO SCH (21:00)
[2017-04-18] MEDS ORDERED: MONTELUKAST 10 MG TAB PO SCH (21:00)
--- NOTE | 2017-04-19 01:47 | P.CONS ---
History of Present Illness - Reason for Consult Consult date: 04/18/17 Hematemesis. Esophageal adenocarcinoma. - History of Present Illness The patient is a 56-year-old gentleman, well-known to our service. He had presented in early 03/18, with complains of progressive difficulty in swallowing. He had an EGD, revealing a mass in the distal esophagus, with pathology consistent with poorly differentiated adenocarcinoma. The patient had locally advanced disease, with no evidence of distant metastasis. He was seen at the [facility] by the thoracic surgery group, and preoperative chemoradiation, per protocol was recommended. By Dr. Flores, and Dr. Blanco locally. He is to start concurrent chemoradiation, on 04/22/17. The patient states that he's been able to swallow liquids well. He has been taking nutritional supplements and has actually gained a pound. He was complaining of some increased cough over the last couple of days, and on the day of admission, started coughing again and subsequently threw up. He stated that there was a large amount of dark red blood in the vomitus, including blood clots. He therefore came into the emergency room. Hemoglobin on presentation was 17.1, and after hydration was 16.1. He has had no recurrence of vomiting since arrival to the hospital. Review of Systems Constitutional: Reports weakness Eyes: denies blurred vision, denies pain Ears: deny: decreased hearing, ear discharge, earache, tinnitus Ears, nose, mouth and throat: Denies headache, Denies sore throat Cardiovascular: Denies chest pain, Denies shortness of breath Respiratory: Reports as per HPI, Reports congestion, Reports dyspnea, Reports wheezing Gastrointestinal: Reports hematemesis, Reports nausea, Reports vomiting, Denies abdominal pain, Denies diarrhea Genitourinary: Reports as per HPI (No specific complaints) Musculoskeletal: Denies myalgias Integumentary: Denies pruritus, Denies rash Neurological: Denies numbness, Denies weakness Psychiatric: Denies anxiety, Denies depression Endocrine: Reports weight change (weight has stabilized.), Denies fatigue Hematologic/Lymphatic: Reports as per HPI Past Medical History Past Medical History: Asthma, Cancer, COPD, GERD/Reflux, Hyperlipidemia, Hypertension, Myocardial Infarction ([place]), Osteoarthritis (OA), Renal Disease Additional Past Medical History / Comment(s): diverticular disease with perforation and sx, CKD stage III, 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%, recent dysphagia, occasional syncope w/hard coughing, esophageal CA Dx 03/2017 Last Myocardial Infarction Date:: 08/28/16 History of Any Multi-Drug Resistant Organisms: None Reported Past Surgical History: Appendectomy, Bowel Resection, Heart Catheterization With Stent, Hernia Repair, Orthopedic Surgery Additional Past Surgical History / Comment(s): pins and plates left wrist, pins and plates right knee Past Anesthesia/Blood Transfusion Reactions: No Reported Reaction Date of Last Stent Placement:: 08/28/16 Past Psychological History: No Psychological Hx Reported Additional Psychological History / Comment(s): Pt resides alone. He has 2 cats. He is independent. 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 Smoking Status: Former smoker Past Alcohol Use History: Rare Additional Past Alcohol Use History / Comment(s): down to 4 cigs/day from 3ppd, has smoked for 42 yrs. Past Drug Use History: None Reported - Past Family History Mother Family Medical History: Cancer Additional Family Medical History / Comment(s): Mother had laryngeal cancer. Father Family Medical History: Cancer, Hyperlipidemia, Hypertension Additional Family Medical History / Comment(s): Father has had back surgery and skin cancer removal. Medications and Allergies Home Medications Medication Instructions Recorded Confirmed Type Albuterol Inhaler [Ventolin Hfa 2 puff INHALATION RT-Q6H PRN 10/17/15 04/18/17 History Inhaler] Budesonide-Formot 160-4.5 Mcg 2 puff INHALATION RT-BID 10/04/16 04/18/17 History [Symbicort 160-4.5 Mcg Inhaler] Isosorbide Mononitrate [Isosorbide 30 mg PO DAILY 03/01/17 04/18/17 History Mononitrate ER] Tiotropium 18 Mcg/Puff [Spiriva] 1 cap INHALATION RT-DAILY 03/01/17 04/18/17 History buPROPion [Wellbutrin] 100 mg PO BID 03/01/17 04/18/17 History Albuterol Nebulized [Ventolin 2.5 mg INHALATION RT-Q4H PRN 04/18/17 04/18/17 History Nebulized] Bisoprol/Hydrochlorothiazide [Ziac 1 tab PO DAILY 04/18/17 04/18/17 History 5-6.25 MG] Omeprazole [PriLOSEC] 20 mg PO AC-BID 04/18/17 04/18/17 History Allergies Allergy/AdvReac Type Severity Reaction Status Date / Time bee venom protein (honey bee) Allergy Swelling Verified 04/18/17 08:54 Penicillins Allergy Swelling Verified 04/18/17 08:54 Physical Exam Vitals: Vital Signs Temp Pulse Pulse Resp BP BP Pulse Ox 04/18/17 15:41 97.8 F 68 17 130/80 95 04/18/17 12:00 18 04/18/17 08:00 97.6 F 67 18 119/63 92 L 04/18/17 04:00 97.8 F 62 18 133/73 98 04/18/17 02:59 98.0 F 63 16 136/82 97 04/18/17 02:48 98.0 F 63 16 136/82 97 04/18/17 01:44 66 18 130/79 98 04/17/17 23:35 98.2 F 74 18 138/71 95 Intake and Output 04/18/17 04/18/17 04/18/17 06:59 14:59 22:59 Intake Total 500 760 240 Balance 500 760 240 Intake: Intake, IV Titration 400 Amount Sodium Chloride 0.9% 1, 400 000 ml @ 125 mls/hr IV . Q8H [facility] Rx#:[id number] Oral 100 760 240 Other: Voiding Method Toilet Toilet Toilet # Voids 1 Weight 81.647 kg Results CBC & Chem 7: 04/18/17 15:11 04/17/17 23:55 Labs: Abnormal Lab Results - Last 24 Hours (Table) 04/17/17 04/17/17 04/18/17 Range/Units 23:55 23:55 06:27 Hct 53.7 H (39.0-53.0) % RDW 15.9 H 15.9 H (11.5-15.5) % BUN 39 H (9-20) mg/dL Creatinine 2.10 H (0.66-1.25) mg/dL Glucose 103 H (74-99) mg/dL 04/18/17 Range/Units 15:11 Hct (39.0-53.0) % RDW 16.0 H (11.5-15.5) % BUN (9-20) mg/dL Creatinine (0.66-1.25) mg/dL Glucose (74-99) mg/dL Assessment and Plan (1) Upper gastrointestinal hemorrhage Narrative/Plan: The patient had a couple of episodes of vomiting blood. Since then he has not had any recurrence of nausea or vomiting. His hemoglobin has actually remained fairly stable, with the drop from 17.1-16.1, easily explainable by hydration. He does not feel nauseous at this time. The clinical presentation, is consistent with the minor bleed, most likely due to oozing from the surface of the tumor. In this situation, unless the patient has persistent bleeding, there likely would not be much benefit from an EGD. The patient was advised that some oozing from the surface her tumor is expected, and we'll actually be treated, once radiation starts. Therefore, from our standpoint, the patient does not have any evidence of recurrent bleeding, he can likely be discharged home whenever felt to be appropriate for the same by the admitting service. Status: Acute (2) Adenocarcinoma of esophagus Narrative/Plan: Diagnostic circumstances are as noted above. The patient is to start treatment with combined chemoradiation, on 04/22/17. For completion of chemo radiation, he will be again assessed at the [facility], for surgery. Status: Acute
[2017-04-19] MEDS ORDERED: BISOPROLOL-HCTZ 5-6.25 MG 1 EACH TAB PO SCH (09:00)
[2017-04-19] MEDS ORDERED: ASPIRIN 325 MG TAB PO SCH (09:00)
[2017-04-19] MEDS ORDERED: CLOPIDOGREL 75 MG TAB PO SCH (09:00)
== END 2017-04-18 19:00 | disposition home or self-care (01) ==
LOC: EC 23:33 → 3OBS 04-18 02:35
PROVIDERS: ADMIT Family Medicine; ATTEND Family Medicine
DX: K92.0 Hematemesis (principal); C15.9 Malignant neoplasm of esophagus, unspecified; N17.9 Acute kidney failure, unspecified; J44.1 Chronic obstructive pulmonary disease with (acute) exacerbation; K57.92 Diverticulitis of intestine, part unspecified, without perforation or abscess without bleeding; I24.9 Acute ischemic heart disease, unspecified; I12.9 Hypertensive chronic kidney disease with stage 1 through stage 4 chronic kidney disease, or unspecified chronic kidney disease; N18.3 Chronic kidney disease, stage 3 (moderate); Q60.0 Renal agenesis, unilateral; K21.9 Gastro-esophageal reflux disease without esophagitis; E78.5 Hyperlipidemia, unspecified; M19.90 Unspecified osteoarthritis, unspecified site; I25.2 Old myocardial infarction; F17.290 Nicotine dependence, other tobacco product, uncomplicated; Z79.51 Long term (current) use of inhaled steroids; Z79.899 Other long term (current) drug therapy; Z79.82 Long term (current) use of aspirin; Z79.02 Long term (current) use of antithrombotics/antiplatelets; Z88.0 Allergy status to penicillin; Z91.030 Bee allergy status
CPT/HCPCS: 99285 ×2; 96361; 96374; 36415; 94640 ×2; 86900; 86901; 80053; 83605; 84484; 85025; 85027; 85610; 85730; 86850; G0378; S4990; C9113

== ENCOUNTER 2017-08-31 16:53 | Emergency (ER) | payer OTHER ==
[2017-08-31] MEDS ORDERED: SODIUM CHLORIDE 0.9% 1,000 ML IV ONE (17:37)
--- NOTE | 2017-08-31 17:50 | ED ---
General Adult HPI - General Chief complaint: Recheck/Abnormal Lab/Rx Stated complaint: Abnormal Labs Time Seen by Provider: 08/31/17 17:16 Source: patient, RN notes reviewed Mode of arrival: wheelchair Limitations: no limitations - History of Present Illness Initial comments: 57-year-old male presents emergency Department for lab recheck. Patient states he was called today was told that his wbc count was elevated today. They do not conform what it was. He did have lab work proximal one week ago which showed a white count of 8.4. Patient has no complaints denies fever, chills, cough, congestion, dysuria, diarrhea, constipation. Patient states that he was just discharged 9 days ago from [facility] as a had esophageal and gastric surgery. He states he has esophageal cancer. He has had chemo therapy. Patient states currently is not having any chemotherapy. Patient does admit that he has a chest tube in his right side is a combination of the surgery. He states that has not had any increased output states actually decreasing. She denies a productive cough. States she has no increased shortness of breath. Patient is currently on tube feedings. He was given increase fluids secondary to elevated kidney function. He states that he only has one kidney. Patient also had bowel resection secondary to perforation. - Related Data Home Medications Medication Instructions Recorded Confirmed Amiodarone HCl [Pacerone] 200 mg PEG/G-TUBE DAILY 08/31/17 08/31/17 Aspirin 325 mg PEG/G-TUBE DAILY 08/31/17 08/31/17 Atorvastatin [Lipitor] 80 mg PEG/G-TUBE HS 08/31/17 08/31/17 Cholecalciferol [Vitamin D3] 1,000 unit PEG/G-TUBE DAILY 08/31/17 08/31/17 Isosorbide Dinitrate 5 mg PEG/G-TUBE TID 08/31/17 08/31/17 Multivit-Min/FA/Lycopen/Lutein 1 tab PEG/G-TUBE DAILY 08/31/17 08/31/17 [Centrum Silver Tablet] Terazosin HCl 10 mg PEG/G-TUBE HS 08/31/17 08/31/17 buPROPion [Wellbutrin] 100 mg PEG/G-TUBE BID 08/31/17 08/31/17 metroNIDAZOLE [Flagyl] 500 mg PEG/G-TUBE Q8H 08/31/17 08/31/17 Previous Rx's Medication Instructions Recorded Levofloxacin [Levaquin] 500 mg PEG/G-TUBE DAILY #7 tab 08/31/17 Allergies Allergy/AdvReac Type Severity Reaction Status Date / Time bee venom protein (honey bee) Allergy Swelling Verified 08/31/17 17:43 Penicillins Allergy Swelling Verified 08/31/17 17:43 Review of Systems ROS Statement: Those systems with pertinent positive or pertinent negative responses have been documented in the HPI. ROS Other: All systems not noted in ROS Statement are negative. 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%, recent dysphagia, occasional syncope w/hard coughing, esophageal CA Dx 03/2017 Last Myocardial Infarction Date:: 08/28/16 History of Any Multi-Drug Resistant Organisms: None Reported Past Surgical History: Appendectomy, Bowel Resection, Heart Catheterization With Stent, Hernia Repair, Orthopedic Surgery Additional Past Surgical History / Comment(s): pins and plates left wrist, pins and plates right knee Past Anesthesia/Blood Transfusion Reactions: No Reported Reaction Date of Last Stent Placement:: 08/28/16 Past Psychological History: No Psychological Hx Reported Smoking Status: Former smoker Past Alcohol Use History: Rare Past Drug Use History: None Reported - Past Family History Mother Family Medical History: Cancer Additional Family Medical History / Comment(s): Mother had laryngeal cancer. Father Family Medical History: Cancer, Hyperlipidemia, Hypertension Additional Family Medical History / Comment(s): Father has had back surgery and skin cancer removal. General Exam Limitations: no limitations General appearance: alert, in no apparent distress Head exam: Present: atraumatic, normocephalic, normal inspection Eye exam: Present: normal appearance, PERRL, EOMI. Absent: scleral icterus, conjunctival injection, periorbital swelling ENT exam: Present: mucous membranes moist, TM's normal bilaterally, normal external ear exam. Absent: normal oropharynx (Poor dentition) Neck exam: Present: normal inspection, full ROM. Absent: tenderness, meningismus, lymphadenopathy Respiratory exam: Present: normal lung sounds bilaterally, other (Chest tube noted on the right, output noted). Absent: respiratory distress, wheezes, rales , rhonchi, stridor Cardiovascular Exam: Present: regular rate, normal rhythm, normal heart sounds. Absent: systolic murmur, diastolic murmur, rubs, gallop, clicks GI/Abdominal exam: Present: soft, normal bowel sounds, other (PEG tube noted). Absent: distended, tenderness, guarding, rebound, rigid Back exam: Absent: CVA tenderness (R), CVA tenderness (L) Skin exam: Present: warm, dry, intact, normal color. Absent: rash Course Vital Signs 08/31/17 08/31/17 17:07 18:45 Temperature 97.7 F 98.1 F Pulse Rate 79 85 Respiratory 20 16 Rate Blood Pressure 108/54 118/64 O2 Sat by Pulse 99 93 L Oximetry Medical Decision Making - Medical Decision Making 57-year-old male presented for recheck of labs. Patient's the receipt. Has improved along with his kidney function. Patient was hydrated. Patient's x- ray does show small pleural effusion on the right and infiltrate. Patient has had a cough for states has not worsened. Patient had no fever. Patient we treated for pneumonia as read by radiologist. Patient has an appointment in 2 days for recheck is advised to return for any worsening symptoms. - Lab Data Result diagrams: 08/31/17 17:50 08/31/17 17:50 Lab Results 08/31/17 08/31/17 08/31/17 Range/Units 17:50 17:50 17:50 WBC 7.7 (3.8-10.6) k/uL RBC 3.29 L (4.30-5.90) m/uL Hgb 10.1 L (13.0-17.5) gm/dL Hct 33.3 L (39.0-53.0) % MCV 101.3 H (80.0-100.0) fL MCH 30.6 (25.0-35.0) pg MCHC 30.2 L (31.0-37.0) g/dL RDW 15.6 H (11.5-15.5) % Plt Count 313 (150-450) k/uL Neutrophils % 85 % Lymphocytes % 7 % Monocytes % 4 % Eosinophils % 2 % Basophils % 0 % Neutrophils # 6.6 (1.3-7.7) k/uL Lymphocytes # 0.5 L (1.0-4.8) k/uL Monocytes # 0.3 (0-1.0) k/uL Eosinophils # 0.1 (0-0.7) k/uL Basophils # 0.0 (0-0.2) k/uL Hypochromasia Marked Poikilocytosis Slight Macrocytosis Slight Sodium 149 H (137-145) mmol/L Potassium 3.8 (3.5-5.1) mmol/L Chloride 110 H (98-107) mmol/L Carbon Dioxide 31 H (22-30) mmol/L Anion Gap 8 mmol/L BUN 55 H (9-20) mg/dL Creatinine 1.60 H (0.66-1.25) mg/dL Est GFR (MDRD) Af Amer 54 (>60 ml/min/1.73 sqM) Est GFR (MDRD) Non-Af 44 (>60 ml/min/1.73 sqM) Glucose 77 (74-99) mg/dL Plasma Lactic Acid David 0.9 (0.7-2.0) mmol/L Calcium 8.5 (8.4-10.2) mg/dL Total Bilirubin 0.2 (0.2-1.3) mg/dL AST 24 (17-59) U/L ALT 40 (21-72) U/L Alkaline Phosphatase 109 (38-126) U/L Total Protein 4.9 L (6.3-8.2) g/dL Albumin 2.2 L (3.5-5.0) g/dL Amylase 52 (30-110) U/L Lipase 55 (23-300) U/L Urine Color Urine Appearance (Clear) Urine pH (5.0-8.0) Ur Specific [place] (1.001-1.035) Urine Protein (Negative) Urine Glucose (UA) (Negative) Urine Ketones (Negative) Urine Blood (Negative) Urine Nitrite (Negative) Urine Bilirubin (Negative) Urine Urobilinogen (<2.0) mg/dL Ur Leukocyte Esterase (Negative) 08/31/17 Range/Units 19:48 WBC (3.8-10.6) k/uL RBC (4.30-5.90) m/uL Hgb (13.0-17.5) gm/dL Hct (39.0-53.0) % MCV (80.0-100.0) fL MCH (25.0-35.0) pg MCHC (31.0-37.0) g/dL RDW (11.5-15.5) % Plt Count (150-450) k/uL Neutrophils % % Lymphocytes % % Monocytes % % Eosinophils % % Basophils % % Neutrophils # (1.3-7.7) k/uL Lymphocytes # (1.0-4.8) k/uL Monocytes # (0-1.0) k/uL Eosinophils # (0-0.7) k/uL Basophils # (0-0.2) k/uL Hypochromasia Poikilocytosis Macrocytosis Sodium (137-145) mmol/L Potassium (3.5-5.1) mmol/L Chloride (98-107) mmol/L Carbon Dioxide (22-30) mmol/L Anion Gap mmol/L BUN (9-20) mg/dL Creatinine (0.66-1.25) mg/dL Est GFR (MDRD) Af Amer (>60 ml/min/1.73 sqM) Est GFR (MDRD) Non-Af (>60 ml/min/1.73 sqM) Glucose (74-99) mg/dL Plasma Lactic Acid David (0.7-2.0) mmol/L Calcium (8.4-10.2) mg/dL Total Bilirubin (0.2-1.3) mg/dL AST (17-59) U/L ALT (21-72) U/L Alkaline Phosphatase (38-126) U/L Total Protein (6.3-8.2) g/dL Albumin (3.5-5.0) g/dL Amylase (30-110) U/L Lipase (23-300) U/L Urine Color Yellow Urine Appearance Clear (Clear) Urine pH 7.0 (5.0-8.0) Ur Specific [place] 1.018 (1.001-1.035) Urine Protein Trace H (Negative) Urine Glucose (UA) Negative (Negative) Urine Ketones Negative (Negative) Urine Blood Negative (Negative) Urine Nitrite Negative (Negative) Urine Bilirubin Negative (Negative) Urine Urobilinogen <2.0 (<2.0) mg/dL Ur Leukocyte Esterase Negative (Negative) Disposition Clinical Impression: Pneumonia Disposition: HOME SELF-CARE Condition: Stable Instructions: Pneumonia (ED) Additional Instructions: Please return to the Emergency Department if symptoms worsen or any other concerns. Prescriptions: Levofloxacin [Levaquin] 500 mg PEG/G-TUBE DAILY #7 tab Referrals: Alexandru Jenkins Jr, DO [Primary Care Provider] - 1-2 days Time of Disposition: 20:28
[2017-08-31 18:06] LABS: Basophils % (A) 0 %; Eosinophils # (A) 0.1 k/uL (0-0.7); Eosinophils % (A) 2 %; HCT 33.3 % (39.0-53.0); HGB 10.1 gm/dL (13.0-17.5); Hypochromasia Marked; Lymphocytes # (A) 0.5 k/uL (1.0-4.8); Lymphocytes % (A) 7 %; MCH 30.6 pg (25.0-35.0); MCHC 30.2 g/dL (31.0-37.0); MCV 101.3 fL (80.0-100.0); Macrocytosis Slight; Mean Platelet Volume 8.1; Monocytes # (A) 0.3 k/uL (0-1.0); Monocytes % (A) 4 %; Neutrophils # (A) 6.6 k/uL (1.3-7.7); Neutrophils % (A) 85 %; Platelet Count 313 k/uL (150-450); Poikilocytosis Slight; RBC 3.29 m/uL (4.30-5.90); RDW 15.6 % (11.5-15.5); WBC 7.7 k/uL (3.8-10.6)
[2017-08-31 18:17] LABS: Albumin 2.2 g/dL (3.5-5.0); Calcium 8.5 mg/dL (8.4-10.2); Potassium 3.8 mmol/L (3.5-5.1); Total Bilirubin 0.2 mg/dL (0.2-1.3); Total Protein 4.9 g/dL (6.3-8.2)
--- NOTE | 2017-08-31 18:39 | XR ---
EXAMINATION TYPE: XR chest 2V DATE OF EXAM: 08/31/2017 COMPARISON: October 04, 2016 HISTORY: Pain TECHNIQUE: Frontal and lateral views of the chest are obtained. FINDINGS: There is a right chest tube. There is right pleural effusion and some infiltrate in the ri ght lower lobe. Left lung is clear. There is right side central venous catheter with tip in the right atrium. There is no sign of pneumothorax. IMPRESSION: Right pleural effusion and right pulmonary lower lobe infiltrate. No heart failure. No p neumothorax. Pulmonary abnormalities or new compared to old chest x-ray.
[2017-08-31 18:48] VITALS: TEMP 98.1
[2017-08-31 20:04] LABS: Appearance,Urine Clear (Clear); Bilirubin,Urine Negative (Negative); Blood,Urine Negative (Negative); Color,Urine Yellow; Glucose,Urine (UA) Negative (Negative); Ketones,Urine Negative (Negative); Leukocyte Esterase,Urine Negative (Negative); Nitrite,Urine Negative (Negative); Protein,Urine Trace (Negative); Specific Gravity,Urine 1.018 (1.001-1.035); Urobilinogen,Urine <2.0 mg/dL (<2.0)
[2017-08-31 20:49] VITALS: BP 109/60; PULSE 84; RESP 20
== END 2017-08-31 20:49 | disposition home or self-care (01) ==
LOC: EC 16:53
DX: J18.9 Pneumonia, unspecified organism (principal); K21.9 Gastro-esophageal reflux disease without esophagitis; E78.5 Hyperlipidemia, unspecified; I10 Essential (primary) hypertension; I25.2 Old myocardial infarction; M19.90 Unspecified osteoarthritis, unspecified site; Z85.01 Personal history of malignant neoplasm of esophagus; Z87.891 Personal history of nicotine dependence; Z79.82 Long term (current) use of aspirin; Z79.899 Other long term (current) drug therapy; Z88.0 Allergy status to penicillin; Z91.030 Bee allergy status
CPT/HCPCS: 36415; 80053; 82150; 83605; 83690; 85025; 81003; 87086; 71020; 99283; 96374; 96361 ×3; J1642

== ENCOUNTER → 2017-10-07 | Outpatient (CLI) | payer OTHER ==
[2017-10-07 16:37] LABS: Blood Urea Nitrogen 27 mg/dL (9-20)
--- NOTE | 2017-10-07 17:32 | CT ---
EXAMINATION TYPE: CT angio chest DATE OF EXAM: 10/07/2017 COMPARISON: 01/21/2017 HISTORY: Shortness of breath. post op esphogus surgery 07/2017 CT DLP: 272.2 mGycm. Automated Exposure Control for Dose Reduction was Utilized. CONTRAST: CTA scan of the thorax is performed with IV Contrast, patient injected with 71 mL of Visipaque 320, p ulmonary embolism protocol. MIP Images are created on CT scanner and reviewed. FINDINGS: LUNGS: There is a new reticular nodular opacity within the left lung base in addition to a slightly l oculated small right pleural effusion with associated compressive atelectasis that is also new from t he prior. Findings are superimposed upon moderate centrilobular emphysematous changes. Centrally low attenuated area of focal pleural thickening anteriorly along the right middle lobe is also seen and s eries 4 image 92 that could represent loculated pleural effusion or pleural-based mass. Additionally there is a punctate focus of air loculated within this on image 66 this measures approximately 3.1 cm . MEDIASTINUM: There is a partially intrathoracic stomach likely from gastric pull-through There is sat isfactory enhancement of the pulmonary artery and its branches, there is no CT evidence for pulmonary embolism. There are no greater than 1 cm hilar or mediastinal lymph nodes. No cardiomegaly or per icardial effusion is seen. OTHER: Numerous benign calcified granulomas are seen within the splenic parenchyma. There is a partia lly visualized enteric tube.. IMPRESSION: 1. No evidence of pulmonary embolism. 2. New left reticular nodular opacity suspicious for atypical pneumonia. 2. New probable loculated anterior pleural effusion superimposed upon focal pleural thickening. Pleur al mass is a less likely possibility. Additionally there is a new partially loculated posterior basil ar right sided small pleural effusion with associated compressive atelectasis.
== END | disposition home or self-care (01) ==
LOC: RADCTMAIN 15:53
PROVIDERS: ATTEND Internal Medicine
DX: J90 Pleural effusion, not elsewhere classified (principal); J98.11 Atelectasis; R91.8 Other nonspecific abnormal finding of lung field
CPT/HCPCS: 82565; 84520; 71275; 36415; Q9967

== ENCOUNTER 2017-11-05 12:55 | Emergency (ER) | payer OTHER ==
--- NOTE | 2017-11-05 13:16 | ED ---
General Adult HPI - General Chief complaint: Recheck/Abnormal Lab/Rx Stated complaint: G Tube Issues Time Seen by Provider: 11/05/17 13:08 Source: patient, RN notes reviewed Mode of arrival: ambulatory Limitations: no limitations - History of Present Illness Initial comments: Patient 57-year-old male who presents emergency room today with chief complaint of needing gastric tube replaced. He states that he accidentally pulled out approximately one hour ago. Sister at bedside who helps take care of him states that she was able to push part of it back in. Patient denies any other complaints or symptoms. Does note that this is the original tube that was placed back in July 2017 at [facility]. Patient admits to history of esophageal cancer. Patient denies any recent fever, chills, shortness of breath, chest pain, back pain, abdominal pain, nausea or vomiting, numbness or tingling, dysuria or hematuria, constipation or diarrhea, headaches or visual changes, or any other complaints. - Related Data Home Medications Medication Instructions Recorded Confirmed Amiodarone HCl [Pacerone] 200 mg PEG/G-TUBE DAILY 08/31/17 11/05/17 Aspirin 325 mg PEG/G-TUBE DAILY 08/31/17 11/05/17 Atorvastatin [Lipitor] 80 mg PEG/G-TUBE HS 08/31/17 11/05/17 Cholecalciferol [Vitamin D3] 1,000 unit PEG/G-TUBE DAILY 08/31/17 11/05/17 Multivit-Min/FA/Lycopen/Lutein 1 tab PEG/G-TUBE DAILY 08/31/17 11/05/17 [Centrum Silver Tablet] Terazosin HCl 10 mg PEG/G-TUBE HS 08/31/17 11/05/17 buPROPion [Wellbutrin] 100 mg PEG/G-TUBE BID 08/31/17 11/05/17 Albuterol Inhaler [Ventolin Hfa 1 puff INHALATION RT-Q4H PRN 11/05/17 11/05/17 Inhaler] Albuterol Nebulized [Ventolin 2.5 mg INHALATION RT-Q4H PRN 11/05/17 11/05/17 Nebulized] Bisoprolol-Hctz 5-6.25 mg [Ziac 1 tab PEG/G-TUBE DAILY 11/05/17 11/05/17 5-6.25] Budesonide/Formoterol Fumarate 2 puff INHALATION RT-BID 11/05/17 11/05/17 [Symbicort 160-4.5 Mcg Inhaler] Isosorbide Dinitrate [Isordil] 10 mg PEG/G-TUBE DAILY 11/05/17 11/05/17 Montelukast [Singulair] 10 mg PEG/G-TUBE HS 11/05/17 11/05/17 Nitroglycerin Sl Tabs [Nitrostat] 0.4 mg SUBLINGUAL Q5M PRN 11/05/17 11/05/17 Allergies Allergy/AdvReac Type Severity Reaction Status Date / Time bee venom protein (honey bee) Allergy Swelling Verified 11/05/17 14:26 Penicillins Allergy Swelling Verified 11/05/17 14:26 Review of Systems ROS Statement: Those systems with pertinent positive or pertinent negative responses have been documented in the HPI. ROS Other: All systems not noted in ROS Statement are negative. 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%, recent dysphagia, occasional syncope w/hard coughing, esophageal CA Dx 03/2017 Last Myocardial Infarction Date:: 08/28/16 History of Any Multi-Drug Resistant Organisms: None Reported Past Surgical History: Appendectomy, Bowel Resection, Heart Catheterization With Stent, Hernia Repair, Orthopedic Surgery Additional Past Surgical History / Comment(s): pins and plates left wrist, pins and plates right knee Past Anesthesia/Blood Transfusion Reactions: No Reported Reaction Date of Last Stent Placement:: 08/28/16 Past Psychological History: No Psychological Hx Reported Smoking Status: Former smoker Past Alcohol Use History: Rare Past Drug Use History: None Reported - Past Family History Mother Family Medical History: Cancer Additional Family Medical History / Comment(s): Mother had laryngeal cancer. Father Family Medical History: Cancer, Hyperlipidemia, Hypertension Additional Family Medical History / Comment(s): Father has had back surgery and skin cancer removal. General Exam - General Exam Comments Initial Comments: General: The patient is awake and alert, in no distress, and does not appear acutely ill. Eye: Pupils are equal, round and reactive to light, extra-ocular movements are intact. No nystagmus. There is normal conjunctiva bilaterally. No signs of icterus. Ears, nose, mouth and throat: There are moist mucous membranes and no oral lesions. Neck: The neck is supple, there is no tenderness or JVD. Cardiovascular: There is a regular rate and rhythm. No murmur, rub or gallop is appreciated. Respiratory: Lungs are clear to auscultation, respirations are non-labored, breath sounds are equal. No wheezes, stridor, rales, or rhonchi. Gastrointestinal: Soft, non-distended, non-tender abdomen without masses or organomegaly noted. Gastric tube placed left upper quadrant Musculoskeletal: Normal ROM, no tenderness. Strength 5/5. Sensation intact. Pulses equal bilaterally 2+. Neurological: A&O x 3. CN II-XII intact, There are no obvious motor or sensory deficits. Coordination appears grossly intact. Speech is normal. Skin: Skin is warm and dry and no rashes or lesions are noted. Psychiatric: Cooperative, appropriate mood & affect, normal judgment. Limitations: no limitations Course Vital Signs 11/05/17 11/05/17 13:00 14:51 Temperature 98.0 F Pulse Rate 93 86 Respiratory 20 18 Rate Blood Pressure 111/67 126/74 O2 Sat by Pulse 98 95 Oximetry Procedures - Procedures Initial comment: Patient's Woodson catheter was replaced with a 16-[place] red rubber Woodson catheter. 5 holes were cut into the sides of the catheter alternating towards the tip of the catheter. Patient tolerated well. Medical Decision Making - Medical Decision Making Case was discussed with patient's surgeon Dr. Sandra from [facility]. He does state that he would like us to place patient's J-tube with another red rubber 16-[place] cutting it for 5 at the bottom of the catheter tip. This was performed here the emergency room with no difficulty. Patient tolerated suture very well. They been discharged home to follow-up with her surgeon. Advised return for any other concerns Disposition Clinical Impression: Jejunostomy tube fell out Disposition: HOME SELF-CARE Condition: Good Instructions: How to Use and Care for Your PEG Tube (ED) Additional Instructions: Please follow-up with your surgeon as discussed. Please return to emergency room for any other concerns. Referrals: Alexandru Jenkins Jr, [Primary Care Provider] - 1-2 days Time of Disposition: 15:15
[2017-11-05 14:56] VITALS: RESP 18
[2017-11-05 15:30] VITALS: BP 121/75; PULSE 83; TEMP 98
== END 2017-11-05 15:29 | disposition home or self-care (01) ==
LOC: EC 12:55
DX: K94.13 Enterostomy malfunction (principal); Q60.0 Renal agenesis, unilateral; E78.5 Hyperlipidemia, unspecified; I10 Essential (primary) hypertension; J44.9 Chronic obstructive pulmonary disease, unspecified; M19.90 Unspecified osteoarthritis, unspecified site; I25.2 Old myocardial infarction; Z87.891 Personal history of nicotine dependence; Z79.51 Long term (current) use of inhaled steroids; Z79.82 Long term (current) use of aspirin; Z79.899 Other long term (current) drug therapy; Z88.0 Allergy status to penicillin; Z91.030 Bee allergy status; Z90.49 Acquired absence of other specified parts of digestive tract
CPT/HCPCS: 99282

== ENCOUNTER 2017-12-15 10:36 | Emergency (ER) | payer OTHER ==
[2017-12-15 10:41] VITALS: RESP 16
[2017-12-15] MEDS ORDERED: LIDOCAINE URO-JET JELLY 2% 5 ML KIT URETHRAL ONE (11:34)
--- NOTE | 2017-12-15 11:56 | ED ---
General Adult HPI - General Chief complaint: Recheck/Abnormal Lab/Rx Stated complaint: j tube issues Time Seen by Provider: 12/15/17 11:05 Source: patient, RN notes reviewed, old records reviewed Mode of arrival: wheelchair Limitations: no limitations - History of Present Illness Initial comments: This is a 57-year-old male the ER for evaluation per patient came in because his J-tube follow-up. Patient states he thought during sleep at night. Patient denies any other complaints - Related Data Home Medications Medication Instructions Recorded Confirmed Amiodarone HCl [Pacerone] 200 mg PEG/G-TUBE DAILY 08/31/17 11/05/17 Aspirin 325 mg PEG/G-TUBE DAILY 08/31/17 11/05/17 Atorvastatin [Lipitor] 80 mg PEG/G-TUBE HS 08/31/17 11/05/17 Cholecalciferol [Vitamin D3] 1,000 unit PEG/G-TUBE DAILY 08/31/17 11/05/17 Multivit-Min/FA/Lycopen/Lutein 1 tab PEG/G-TUBE DAILY 08/31/17 11/05/17 [Centrum Silver Tablet] Terazosin HCl 10 mg PEG/G-TUBE HS 08/31/17 11/05/17 buPROPion [Wellbutrin] 100 mg PEG/G-TUBE BID 08/31/17 11/05/17 Albuterol Inhaler [Ventolin Hfa 1 puff INHALATION RT-Q4H PRN 11/05/17 11/05/17 Inhaler] Albuterol Nebulized [Ventolin 2.5 mg INHALATION RT-Q4H PRN 11/05/17 11/05/17 Nebulized] Bisoprolol-Hctz 5-6.25 mg [Ziac 1 tab PEG/G-TUBE DAILY 11/05/17 11/05/17 5-6.25] Budesonide/Formoterol Fumarate 2 puff INHALATION RT-BID 11/05/17 11/05/17 [Symbicort 160-4.5 Mcg Inhaler] Isosorbide Dinitrate [Isordil] 10 mg PEG/G-TUBE DAILY 11/05/17 11/05/17 Montelukast [Singulair] 10 mg PEG/G-TUBE HS 11/05/17 11/05/17 Nitroglycerin Sl Tabs [Nitrostat] 0.4 mg SUBLINGUAL Q5M PRN 11/05/17 11/05/17 Allergies Allergy/AdvReac Type Severity Reaction Status Date / Time bee venom protein (honey bee) Allergy Swelling Verified 12/15/17 10:41 Penicillins Allergy Swelling Verified 12/15/17 10:41 Review of Systems ROS Statement: Those systems with pertinent positive or pertinent negative responses have been documented in the HPI. ROS Other: All systems not noted in ROS Statement are negative. 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%, recent dysphagia, occasional syncope w/hard coughing, esophageal CA Dx 03/2017 Last Myocardial Infarction Date:: 08/28/16 History of Any Multi-Drug Resistant Organisms: None Reported Past Surgical History: Appendectomy, Bowel Resection, Heart Catheterization With Stent, Hernia Repair, Orthopedic Surgery Additional Past Surgical History / Comment(s): pins and plates left wrist, pins and plates right knee Past Anesthesia/Blood Transfusion Reactions: No Reported Reaction Date of Last Stent Placement:: 08/28/16 Past Psychological History: No Psychological Hx Reported Smoking Status: Former smoker Past Alcohol Use History: Rare Past Drug Use History: None Reported - Past Family History Mother Family Medical History: Cancer Additional Family Medical History / Comment(s): Mother had laryngeal cancer. Father Family Medical History: Cancer, Hyperlipidemia, Hypertension Additional Family Medical History / Comment(s): Father has had back surgery and skin cancer removal. General Exam Limitations: no limitations General appearance: alert, in no apparent distress Head exam: Present: atraumatic, normocephalic, normal inspection Eye exam: Present: normal appearance, PERRL, EOMI. Absent: scleral icterus, conjunctival injection, periorbital swelling ENT exam: Present: normal exam, mucous membranes moist Neck exam: Present: normal inspection. Absent: tenderness, meningismus, lymphadenopathy Respiratory exam: Present: normal lung sounds bilaterally. Absent: respiratory distress, wheezes, rales, rhonchi, stridor Cardiovascular Exam: Present: regular rate, normal rhythm, normal heart sounds. Absent: systolic murmur, diastolic murmur, rubs, gallop, clicks GI/Abdominal exam: Present: soft, normal bowel sounds. Absent: distended, tenderness, guarding, rebound, rigid Extremities exam: Present: normal inspection, full ROM, normal capillary refill. Absent: tenderness, pedal edema, joint swelling, calf tenderness Back exam: Present: normal inspection Neurological exam: Present: alert, oriented X3, CN II-XII intact Psychiatric exam: Present: normal affect, normal mood Skin exam: Present: warm, dry, intact, normal color. Absent: rash Course Vital Signs 12/15/17 12/15/17 10:39 12:09 Temperature 98 F 97.9 F Pulse Rate 82 78 Respiratory 16 16 Rate Blood Pressure 89/53 95/61 O2 Sat by Pulse 95 96 Oximetry - Reevaluation(s) Reevaluation #1: J-tube was replaced in the ER without difficulty Medical Decision Making - Medical Decision Making 57 male the ER with dislodged J-tube, G-tube is replaced here in the ER by myself. Patient can be discharged home Disposition Clinical Impression: PEG tube malfunction Disposition: HOME SELF-CARE Condition: Good Instructions: Percutaneous Endoscopic Gastrostomy (ED) Is patient prescribed a controlled substance at d/c from ED?: No Referrals: Alexandru Jenkins Jr, [Primary Care Provider] - 1-2 days
[2017-12-15 12:10] VITALS: BP 95/61; PULSE 78; TEMP 97.9
== END 2017-12-15 12:09 | disposition home or self-care (01) ==
LOC: EC 10:36
DX: K94.23 Gastrostomy malfunction (principal); Q60.0 Renal agenesis, unilateral; E78.5 Hyperlipidemia, unspecified; I10 Essential (primary) hypertension; J44.9 Chronic obstructive pulmonary disease, unspecified; I25.2 Old myocardial infarction; Z87.891 Personal history of nicotine dependence; Z79.51 Long term (current) use of inhaled steroids; Z79.82 Long term (current) use of aspirin; Z79.899 Other long term (current) drug therapy; Z88.0 Allergy status to penicillin; Z91.030 Bee allergy status; Z90.49 Acquired absence of other specified parts of digestive tract
CPT/HCPCS: 99283